=== PATIENT | female | born 1965 | race Caucasian/White ===

== ENCOUNTER 2019-04-07 14:44 | Emergency (ER) | payer SELFPAY ==
[2019-04-07] MEDS ORDERED: NS 0.9% 1000 ML** 1,000 ML IV ONE (15:39)
--- NOTE | 2019-04-07 15:49 | ED ---
Complex/Multi-Sys Presentation - HPI Summary HPI Summary: This pt is a 53 Y/O F presenting to [facility] accompanied by her friend with a CC of SOB that has been present for the last couple weeks. She states that she has pain in her arms and legs with a feeling of being flushed for the duration of the SOB. She states that she has two small blister-like abscesses to her L hand and L upper arm. She states that she has a tooth abscess that she drains every couple of days. She states that she is prone to cold sores and may have had one episode of shingles years ago. She also states that she is diaphoretic. She denies any sore throat, sputum production, fevers, and CP. She states that she has no aggravating or alleviating factors. She has a PMHx of HTN that is controlled through medications. She has a SHx of smoking cigarettes - History Of Current Complaint Chief Complaint: EDGeneral Time Seen by Provider: 04/07/19 15:23 Hx Obtained From: Patient Onset/Duration: Sudden Onset, Lasting Weeks - 2, Still Present Timing: Constant Severity Currently: None Aggravating Factor(s): nothing Alleviating Factor(s): nothing Associated Signs And Symptoms: Positive: SOB, Diaphoresis, Other - L hand and L upper arm pain due to abscesses, abscesses in mouth. Negative: Cough, Fever - Allergies/Home Medications Allergies/Adverse Reactions: Allergies Allergy/AdvReac Type Severity Reaction Status Date / Time No Known Allergies Allergy Verified 04/07/19 14:49 Home Medications: Home Medications Hydrochlorothiazide TAB* [Hydrodiuril TAB*] 12.5 mg PO DAILY 04/07/19 [History Confirmed 04/07/19] Lisinopril TAB* [Prinivil TAB*] 10 mg PO DAILY 04/07/19 [History Confirmed 04/07] PMH/Surg Hx/FS Hx/Imm Hx Previously Healthy: Yes Endocrine/Hematology History: Denies: Hx Diabetes Cardiovascular History: Reports: Hx Hypertension Sensory History: Denies: Hx Contacts or Glasses Opthamlomology History: Denies: Hx Contacts or Glasses - Cancer History Hx Chemotherapy: No Hx Radiation Therapy: No - Surgical History Surgical History: Yes Surgery Procedure, Year, and Place: , 1986. Knee surgery. Gallbladder removal. Kidney Stent placement - Immunization History Immunizations Up to Date: No Infectious Disease History: No Infectious Disease History: Denies: Traveled Outside the [place] in Last 30 Days - Family History Known Family History: Positive: Cardiac Disease, Hypertension, Other - [place] - Social History Occupation: Unemployed Lives: Alone Alcohol Use: None Hx Substance Use: No Substance Use Type: Reports: None Hx Tobacco Use: Yes Smoking Status (MU): Current Some Day Smoker Amount Used/How Often: / PPD Review of Systems Positive: Skin Diaphoresis. Negative: Fever Negative: Sore Throat Negative: Chest Pain Positive: Shortness Of Breath, Other - sputum production Positive: Other - L arm pain, abscesses to L upper arm and L hand. Abscess in mouth All Other Systems Reviewed And Are Negative: Yes Physical Exam - Summary Physical Exam Summary: Constitutional: Well-developed, Well-nourished, Alert. (-) Distressed Skin: Warm, Dry, two small (2-3mm diameter) ulcerated areas. one on L forearm, one on L upper arm. No errythema, blistering lesions or petechiae HENT: Normocephalic; Atraumatic Eyes: Conjunctiva normal Neck: Musculoskeletal ROM normal neck. (-) JVD, (-) Stridor, (-) Tracheal deviation Cardio: Rhythm regular, rate normal, Heart sounds normal; Intact distal pulses; The pedal pulses are 2+ and symmetric. Radial pulses are 2+ and symmetric. Pulmonary/Chest wall: Effort normal. (-) Respiratory distress, (-) Wheezes, (-) Rales Abd: Soft, (-) tenderness, (-) Distension, (-) Guarding, (-) Rebound Musculoskeletal: (-) Edema Neuro: Alert, Oriented x3 Psych: Mood and affect Normal Triage Information Reviewed: Yes Vital Signs On Initial Exam: Initial Vitals Temp Pulse Resp BP Pulse Ox 98.3 F 90 16 184/117 98 04/07/19 14:44 04/07/19 14:44 04/07/19 14:44 04/07/19 14:44 04/07/19 14:44 Vital Signs Reviewed: Yes Procedures - Sedation Patient Received Moderate/Deep Sedation with Procedure: No Diagnostics - Vital Signs Vital Signs Temp Pulse Resp BP Pulse Ox 04/07/19 14:44 98.3 F 90 16 184/117 98 - Laboratory Result Diagrams: 04/07/19 15:57 04/07/19 15:57 Lab Statement: Any lab studies that have been ordered have been reviewed, and results considered in the medical decision making process. - Radiology CXR Radiology Interpretation Completed By: Radiologist Summary of Radiographic Findings: Evidence suggestive of COPD. ED physician has reviewed this report. - EKG 1601 Cardiac Rate: NL - 74 BPM EKG Rhythm: Sinus Rhythm ST Segment: Normal Ectopy: None Summary of EKG Findings: An EKG at 1601 reveals NSR at 74 BPMs, nml axis, nml intervals. No STEMI. No acute changes. Interpreted by Dr. Conroy, 04/07/2019 1601. Complex Multi-Symp Course/Dx Course Of Treatment: This pt is a 53 Y/O F presenting to [facility] accompanied by her friend with a CC of SOB that has been present for the last couple weeks. She states that she has pain in her arms and legs with a feeling of being flushed for the duration of the SOB. She states that she has two small blister- like abscesses to her L hand and L upper arm. She states that she has a tooth abscess that she drains every couple of days. She states that she is prone to cold sores and may have had one episode of shingles years ago. Her PE found that she has two small (2-3mm diameter) ulcerated areas. one on L forearm, one on L upper arm. No errythema, blistering lesions or petechiae. Her CXR found evidence of COPD. An EKG at 1601 reveals NSR at 74 BPMs, nml axis, nml intervals. No STEMI. No acute changes. She has no abnormalities in labratory results. She will be diagnosed with a Dx of HTN and given Lisinopril. - Diagnoses Provider Diagnoses: HTN (hypertension) Discharge ED - Sign-Out/Discharge Documenting (check all that apply): Patient Departure - discharge - Discharge Plan Condition: Stable Disposition: HOME Patient Education Materials: Chronic Hypertension (ED) Referrals: [facility] [Outside] - 2 Days Additional Instructions: PLEASE FOLLOW UP WITH THE [facility] IN 1-3 DAYS TO BE SET UP WITH A PRIMARY CARE PHYSICIAN. PLEASE RETURN TO THE EMERGENCY DEPARTMENT FOR ANY NEW OR WORSENING SYMPTOMS. TAKE THE PRESCRIBED MEDICATIONS DIRECTED. - Attestation Statements Document Initiated by Scribe: Yes Documenting Scribe: Adrian Moyer Provider For Whom Scribe is Documenting (Include Credential): Sunny Conroy DO Scribe Attestation: I, Adrian Moyer, scribed for Sunny Conroy DO on 04/07/19 at 1727. Status of Scribe Document: Ready
[2019-04-07 16:05] LABS: ABS Eosinophils 0.1 10^3/ul (0-0.6); ABS Lymphocytes 2.2 10^3/ul (1.0-4.8); ABS Monocytes 0.3 10^3/ul (0-0.8); Hematocrit 38 % (35-47); Hemoglobin 12.9 g/dL (12.0-16.0); Lymphocyte % 38.8 %; Mean Corpuscular HGB Conc 34 g/dL (31-36); Mean Corpuscular Hemoglobin 31 pg (27-31); Mean Corpuscular Volume 93 fL (80-97); Mean Platelet Volume 7.6 fL (7.4-10.4); Nucleated Red Blood Cells % 0.1; Platelet Count 247 10^3/uL (150-450); Red Blood Count 4.14 10^6 /uL (3.70-4.87); Red Cell Distribution Width 14 % (10-15); White Blood Count 5.6 10^3/uL (3.5-10.8)
[2019-04-07 16:23] LABS: Albumin 4.3 g/dL (3.2-5.2); Albumin/Globulin Ratio 1.7 (1-3); BUN/Creatinine Ratio 29.5 (8-20); C Reactive Protein 3.01 mg/L (<8.01); Calcium 9.4 mg/dL (8.6-10.3); EGFR African American 81.3 (>60); EGFR Non-African American 67.2 (>60); Globulin 2.5 g/dL (2-4); Potassium 3.9 mmol/L (3.5-5.0); Total Bilirubin 0.3 mg/dL (0.2-1.0); Total Protein 6.8 g/dL (6.4-8.9)
[2019-04-07 16:30] LABS: Urine Appearance Clear; Urine Bilirubin Negative (Negative); Urine Blood Negative (Negative); Urine Color Yellow; Urine Glucose Negative (Negative); Urine Ketones Negative (Negative); Urine Nitrite Negative (Negative); Urine Protein Negative (Negative); Urine Specific Gravity 1.024 (1.010-1.030); Urine Urobilinogen Negative (Negative)
[2019-04-07 16:33] LABS: Urine Bacteria Absent (Absent); Urine Red Blood Cell Trace(0-2/hpf) (Absent); Urine Squamous Epithelial Cell Present (Absent); Urine White Blood Cell Trace(0-5/hpf) (Absent)
[2019-04-07 17:37] VITALS: BP 164/108
== END 2019-04-07 17:38 | disposition home or self-care (01) ==
LOC: ED 14:44
DX: I10 Essential (primary) hypertension (principal); R06.02 Shortness of breath; Z72.0 Tobacco use; Z79.899 Other long term (current) drug therapy; L02.414 Cutaneous abscess of left upper limb; K12.2 Cellulitis and abscess of mouth
CPT/HCPCS: 36415; 71046; 80053; 81003; 81015; 85025; 86140; 87077; 87086; 93005; 99282